=== PATIENT | female | born 1990 | race African-American/Black ===

== ENCOUNTER 2018-09-13 17:02 | Emergency (ER) | payer SELFPAY ==
[~2018-09-13] VITALS: Ht 170.2 cm; Wt 122.7 kg
[2018-09-13 17:13] VITALS: Ht 170.2 cm; Wt 122.7 kg
[2018-09-13 18:04] LABS: BASOPHILS 0.2 % (0-2); EOSINOPHILS 0.9 % (0-7); HEMATOCRIT 36.3 % (36.0-48.0); HEMOGLOBIN 12.2 g/dL (12-16); LYMPHOCYTES 37.8 % (15-50); MCH 33.2 pg (26.0-34.0); MCHC 33.6 g/dL (31.0-37.0); MCV 98.6 fL (80.0-100.0); MEAN PLATELET VOLUME 9.1 fL (7.4-10.4); MONOCYTES 7.9 % (2-11); NEUTROPHILS 53.2 % (40-80); RBC 3.68 10x6/uL (4.00-5.40); WBC 5.7 10x3/uL (4.8-10.8)
[2018-09-13 18:13] LABS: PLATELET COUNT 345 10x3/uL (130-400)
[2018-09-13 18:18] LABS: ALBUMIN 3.5 g/dL (3.4-5.0); ALKALINE PHOSPHATASE 61 U/L (46-116); ALT (SGPT) 17 U/L (10-68); BILIRUBIN - TOTAL 0.36 mg/dL (0.2-1.3); CALC OSMOLALITY 278 mosm/kg (275-300); CALCIUM 8.6 mg/dL (8.5-10.1); CARBON DIOXIDE 26.4 mmol/L (21.0-32.0); CHLORIDE - SERUM 106 mmol/L (98-107); CREATININE - SERUM 0.9 mg/dL (0.6-1.3); GLUCOSE 77 mg/dL (74-106); POTASSIUM - SERUM 3.9 mmol/L (3.5-5.1); PROTEIN - SERUM 7.5 g/dL (6.4-8.2); SODIUM 141 mmol/L (136-145); UREA NITROGEN 11 mg/dL (7-18); eGFR NON AFRICAN AMERICAN 80 mL/min (90-120)
[2018-09-13 18:28] LABS: HCG - QUANTITATIVE (MATERNAL) 697 mIU/mL
[2018-09-13 20:05] LABS: APPEARANCE HAZY (CLEAR); BILIRUBIN NEGATIVE (NEGATIVE); COLOR YELLOW (YELLOW); GLUCOSE NEGATIVE (NEGATIVE); KETONE NEGATIVE (NEGATIVE); NITRITE POSITIVE (NEGATIVE); PROTEIN TRACE mg/dL (NEGATIVE); SPECIFIC GRAVITY 1.015 (1.005-1.020); UROBILINOGEN NORMAL (NORMAL)
[2018-09-13 20:07] LABS: BACTERIA MANY /hpf (NONE SEEN); EPITHELIAL CELLS OCC /hpf (0-5); RED CELLS - URINE 25-50 /hpf (0-5); WHITE CELLS - URINE 0-5 /hpf (0-5)
[2018-09-13] MEDS ORDERED: MACROBID100 MG PO (20:23)
[2018-09-13 20:44] VITALS: BP 144/81
== END 2018-09-13 20:44 | disposition home or self-care (01) ==
LOC: D.ER 17:02
PROVIDERS: Family Medicine
DX: O23.41 Unspecified infection of urinary tract in pregnancy, first trimester (principal); Z3A.01 Less than 8 weeks gestation of pregnancy

== ENCOUNTER 2020-11-09 16:01 | Emergency (ER) | payer MEDICAID ==
[~2020-11-09] VITALS: Ht 170.2 cm; Wt 116.8 kg
[~2020-11-09 16:01] MED LIST: MACROBID100 MG PO
[2020-11-09 16:09] VITALS: Ht 170.2 cm; Wt 116.8 kg
[2020-11-09 18:26] LABS: BASOPHILS 0 % (0-2); EOSINOPHILS 0.5 % (0-7); HEMOGLOBIN 10.3 g/dL (12-16); IMMATURE GRANULOCYTES 0.2 % (0-5); LYMPHOCYTE ABS# 1.88 10x3/uL (1.18-3.74); LYMPHOCYTES 29.5 % (15-50); MCH 32.1 pg (26.0-34.0); MCHC 33.2 g/dL (31.0-37.0); MCV 96.6 fL (80.0-100.0); MEAN PLATELET VOLUME 9.7 fL (7.4-10.4); MONOCYTES 8.9 % (2-11); NEUTROPHIL ABS# 3.89 10x3/uL (1.56-6.13); NEUTROPHILS 60.9 % (40-80); RBC 3.21 10x6/uL (4.00-5.40); RDW 12.5 % (11.5-14.5); WBC 6.4 10x3/uL (4.8-10.8)
[2020-11-09 18:27] LABS: PLATELET COUNT 251 10x3/uL (130-400)
[2020-11-09 18:34] LABS: CALC OSMOLALITY 267 mosm/kg (275-300); CALCIUM 8.8 mg/dL (8.5-10.1); CARBON DIOXIDE 25.2 mmol/L (21.0-32.0); CHLORIDE - SERUM 106 mmol/L (98-107); CREATININE - SERUM 0.5 mg/dL (0.6-1.3); GLUCOSE 79 mg/dL (74-106); POTASSIUM - SERUM 3.7 mmol/L (3.5-5.1); SODIUM 136 mmol/L (136-145); UREA NITROGEN 5 mg/dL (7-18); eGFR NON AFRICAN AMERICAN > 90 mL/min (90-120)
[2020-11-09 18:43] LABS: ALBUMIN 2.5 g/dL (3.4-5.0); ALKALINE PHOSPHATASE 118 U/L (30-120); ALT (SGPT) 12 U/L (10-68); LIPASE 60 U/L (73-393); MAGNESIUM - SERUM 1.9 mg/dL (1.8-2.4); PROTEIN - SERUM 6.4 g/dL (6.4-8.2); TROPONIN-I < 0.017 ng/mL (0.000-0.060)
[2020-11-09 19:27] LABS: BILIRUBIN NEGATIVE (NEGATIVE); KETONE MODERATE mg/dL (NEGATIVE); NITRITE NEGATIVE (NEGATIVE)
[2020-11-09 19:28] LABS: BACTERIA MANY HPF (NONE SEEN)
[2020-11-09] MEDS ORDERED: MACROBID100 MG PO (19:37)
[2020-11-09 19:39] VITALS: BP 105/65
== END 2020-11-09 19:39 | disposition home or self-care (01) ==
LOC: D.ER 16:01
PROVIDERS: Emergency Medicine
DX: O23.43 Unspecified infection of urinary tract in pregnancy, third trimester (principal); R06.09 Other forms of dyspnea; Z3A.34 34 weeks gestation of pregnancy

== ENCOUNTER 2020-11-23 14:06 | Inpatient (IN) | payer MEDICAID ==
[~2020-11-23] VITALS: Ht 172.7 cm; Wt 117.9 kg
[2020-12-13] VITALS (10 sets, daily range): BP systolic 107–126; BP diastolic 55–71; Ht 172.7 cm; Wt 117.9 kg
[2020-12-13] MEDS ORDERED: PRENAVITE1 TAB PO (09:52)
[2020-12-13 09:57] LABS: HEMATOCRIT 31.7 % (36.0-48.0); HEMOGLOBIN 10.5 g/dL (12-16); MCH 31.6 pg (26.0-34.0); MCHC 33.1 g/dL (31.0-37.0); MCV 95.5 fL (80.0-100.0); MEAN PLATELET VOLUME 11.2 fL (7.4-10.4); RBC 3.32 10x6/uL (4.00-5.40); RDW 12.7 % (11.5-14.5); WBC 5.5 10x3/uL (4.8-10.8)
[2020-12-13 11:28] LABS: UDS - AMPHET NEGATIVE QUAL (NEGATIVE); UDS - BARB NEGATIVE QUAL (NEGATIVE); UDS - BENZO NEGATIVE QUAL (NEGATIVE); UDS - COCAINE NEGATIVE QUAL (NEGATIVE); UDS - OPIATE NEGATIVE QUAL (NEGATIVE); UDS - PCP NEGATIVE QUAL (NEGATIVE); UDS - THC NEGATIVE QUAL (NEGATIVE)
--- NOTE | 2020-12-13 14:10 | NUR ---
BABY DELIVERED CEPHALIC POSITION @ 1327. PLACENTA @ 1328. FAMILY FRIEND AT SIDE WITH PATIENT.
--- NOTE | 2020-12-13 14:31 | NUR ---
PT STATED 7.10 UPON FUNDAL MASSAGE. EDUCATED ON PAIN MEDICATION AND RISK OF OVERSEDATION. PT ON PHONE WITH FAMILY. AWAKE AND ALERT AFTER 30 TORADOL AND 1 OF DILAUDED. PT STATES PAIN IS STILL BAD. WILL CONTINUE TO WATCH SEDATION STATUS.
--- NOTE | 2020-12-13 14:41 | NUR ---
REC'D BACK TO ROOM 1273 FROM PACU. AA&O X4. VSS. FF, MIDLINE AND U2 WITH SMALL AMT RUBRA LOCHIA, 3 QUARTER SIZED CLOTS EXPRESSED WITH MASSAGE. PERICARE DONE. PAD CHANGED WITH 16 MLS QBL TO PAD. BREATH SOUNDS CLEAR AND EQUAL BILATERALLY. BOWEL SOUNDS PRESENT AND HYPOACTIVE X4. LOWER TRANSVERSE ABD INCISION WITH DRSG NOTED, CLEAN, DRY AND INTACT. RICHARDS DRAINING TO BEDSIDE DRAINAGE SYSTEM. POC DISCUSSED WITH PT, VERBALIZES UNDERSTANDING AND DENIES NEEDS. PAIN 4-5/10 PER PT "JUST A LITTLE SORE BUT THE MEDICINE SHE GAVE ME IS HELPING A LOT." BED IN LOW POSITION WITH SRUP X2. CALL LIGHT AND PHONE WITHIN REACH. WILL CONTINUE TO MONITOR.
--- NOTE | 2020-12-13 14:58 | NUR ---
TELECOMMUNICATIONS ENGINEER INITIATED, INSTRUCTED ON USE, VERBALIZES UNDERSTANDING.
--- NOTE | 2020-12-13 15:04 | NUR ---
VSS. FF, MIDLINE AND U2 WITH SMALL AMT RUBRA LOCHIA, NO CLOTS NOTED. PT SITTING IN HIGH FOWLERS POSITION CONVERSING ON PHONE AND WITH FAMILY. INCENTIVE SPIROMETER PROVIDED, INSTRUCTED ON USE WITH RETURN DEMONSTRATION DONE X10 WITH GOOD EFFORT. SCD'S TO BLE. PT ABLE TO MOVE BLE WITH EFFORT. COUGH AND DEEP BREATHING DONE WITH GOOD EFFORT. DENIES NEEDS.
--- NOTE | 2020-12-13 15:27 | NUR ---
VSS. FF, MIDLINE AND U2 WITH SCANT RUBRA LOCHIA, NO CLOTS NOTED. NBN TO BEDSIDE WITH INFANT FOR BONDING AND DISCUSSING POC.
--- NOTE | 2020-12-13 15:55 | NUR ---
VSS. FUNDUS FIRM, MIDLINE AND U2 WITH SCANT RUBRA LOCHIA. SPRITE PROVIDED. NEW ICE PACK PROVIDED. INFANT TO NBN PER PT REQUEST. DENIES ADDITIONAL NEEDS AND QUESTIONS. INCENTIVE SPIROMETER DONE X10 WITH GOOD EFFORT, REPOSITIONED WITH MIN ASSIST TO LEFT SIDE WITH PILLOW PLACED BEHIND BACK FOR COMFORT AND SUPPORT. SCD'S REMAIN ON BLE. BED IN LOW POSITION WITH SRUPX2. CALL LIGHT AND PHONE WITHIN REACH.
--- NOTE | 2020-12-13 16:57 | NUR ---
REPOSITIONED FROM L SIDE TO HIGH FOWLERS POSITION. TRAY PROVIDED. VSS. FF, MIDLINE AND U2 WITH SCANT RUBRA LOCHIA, NO CLOTS NOTED. DENIES PAIN AT THIS TIME, REPORTS THAT SHE JUST USED MEDICAL ADMINISTRATIVE ASSISTANT AND INCENTIVE SPIROMETER. ICE WATER PROVIDED. DENIES ADDITIONAL NEEDS. UPDATED ON STATUS.
--- NOTE | 2020-12-13 18:27 | NUR ---
VSS. FF MIDLINE AND U2 WITH SMALL AMT RUBRA LOCHIA, NO CLOTS NOTED. PERICARE DONE. PT ROLLED AND REPOSITIONED INDEPENDENTLY. I&O DONE. TO BEDSIDE, ID BANDS MATCHED AND INFANT PLACED IN PT ARMS. ICE WATER, DR. ORTEGA, AND ICE PACK PROVIDED. DENIES PAIN AND ADDITIONAL NEEDS. SCD'S ON BLE. INCENTIVE SPIROMETER DONE X10 WITH GOOD EFFORT, COUGH AND DEEP BREATHING DONE WITH GOOD EFFORT. PLACED BACK IN HIGH FOWLERS POSITION.
--- NOTE | 2020-12-13 19:18 | NUR ---
PT RESTING IN BED A,A,OX4. IN ARMS. VSS. SEE FULL ASSESSMENT PER FLOWSHEET. FF,MIDLINE U2. SMALL AMOUNT RUBRA LOCHIA NOTED ON PERIPADS. ICE PACK OVER LARGE BANDAGE AT LOWER TRANSVERSE ABDOMINAL INCISION SITE. BANDAGE CLEAN/DRI/INTACT. PIV INFUSING IN RT FOREARM PIT AT 125 ML/HR. C/D/I. RICHARDS DRAINING TO BEDSIDE DRAINAGE 15 MLS DARK TEA COLORED URINE. WATER PROVIDED. PT ENCOURAGED TO DRINK MORE WATER.
[2020-12-13 20:28] LABS: BASOPHILS 0.1 % (0-2); EOSINOPHILS 0 % (0-7); HEMATOCRIT 28.5 % (36.0-48.0); HEMOGLOBIN 9.7 g/dL (12-16); IMMATURE GRANULOCYTES 0.2 % (0-5); LYMPHOCYTE ABS# 1.45 10x3/uL (1.18-3.74); LYMPHOCYTES 16.9 % (15-50); MCH 32.6 pg (26.0-34.0); MCV 95.6 fL (80.0-100.0); MEAN PLATELET VOLUME 10.3 fL (7.4-10.4); MONOCYTES 7.7 % (2-11); NEUTROPHIL ABS# 6.46 10x3/uL (1.56-6.13); NEUTROPHILS 75.1 % (40-80); PLATELET COUNT 230 10x3/uL (130-400); RBC 2.98 10x6/uL (4.00-5.40); RDW 12.6 % (11.5-14.5)
[2020-12-13 20:29] LABS: WBC 8.6 10x3/uL (4.8-10.8)
--- NOTE | 2020-12-13 20:47 | NUR ---
PT CALLS OUT ON LIGHT REQUESTS ASSISTANCE OF GETTING OUT OF CRIB. INFANT HANDED TO MOM. PT DENIES OTHER NEEDS AT THIS TIME.
--- NOTE | 2020-12-13 21:45 | NUR ---
PT REQUESTS FOOD. DR DICKERSON NOTIFIED OF REQUEST. ORDERS RECEIVED TO KEEP PT ON CLEAR LIQUID DIET UNTIL MORNING. CLEAR DIET EXPLAINED TO PT, PT VERBALIZES UNDERSTANDING.
--- NOTE | 2020-12-13 21:57 | NUR ---
SEBASTIAN AND ICE WATER PROVIDED. PT DENIES OTHER NEES AT THIS TIME.
--- NOTE | 2020-12-13 23:17 | NUR ---
PT RESTING, DENIES NEEDS AT THIS TIME.
--- NOTE | 2020-12-14 00:10 | NUR ---
FF,MIDLINE,U2. SMALL AMOUNT RUBRA LOCHIA NOTED ON PERIPADS. PERICARE DONE AND PERIPADS, CHUCKS CHANGED. ICE PROVIDED. PT DENIES OTHER NEEDS AT THIS TIME.
--- NOTE | 2020-12-14 02:35 | NUR ---
PT CALLS OUT ON LIGHT REQUESTING ASSISTANCE WITH . INFANT HANDED TO MOTHER FROM CRIB. PT DENIES OTHER NEEDS AT THIS TIME.
--- NOTE | 2020-12-14 03:30 | NUR ---
PT REQUESTS FOR NURSERY TO CHANGE . PT EDUCATED ON SITTING UP AND BENEFITS OF MOVEMENT TO AID IN HEALING. PT ASSISTED TO SIT UP ON EDGE OF BED. INFANT CRIB MOVED TO OPPOSITE SIDE AND PT CHANGING 'S DIAPER ON HER OWN.
--- NOTE | 2020-12-14 04:00 | NUR ---
PT CALLS OUT ON LIGHT REQUESTING HELP WITH INFANT. ONESIE PUT ON , DIAPER THROWN OUT. PLACED IN CRIB.
[2020-12-14 07:03] LABS: BASOPHILS 0.2 % (0-2); EOSINOPHILS 0.3 % (0-7); HEMATOCRIT 29.1 % (36.0-48.0); HEMOGLOBIN 9.5 g/dL (12-16); IMMATURE GRANULOCYTES 0.2 % (0-5); LYMPHOCYTE ABS# 1.19 10x3/uL (1.18-3.74); LYMPHOCYTES 17.9 % (15-50); MCH 31.3 pg (26.0-34.0); MCHC 32.6 g/dL (31.0-37.0); MCV 95.7 fL (80.0-100.0); MEAN PLATELET VOLUME 10.8 fL (7.4-10.4); MONOCYTES 11.3 % (2-11); NEUTROPHIL ABS# 4.65 10x3/uL (1.56-6.13); NEUTROPHILS 70.1 % (40-80); PLATELET COUNT 241 10x3/uL (130-400); RBC 3.04 10x6/uL (4.00-5.40); RDW 12.6 % (11.5-14.5); WBC 6.6 10x3/uL (4.8-10.8)
[2020-12-14 07:15] VITALS: BP 117/70
[2020-12-14 07:15] LABS: RAPID PLASMA REAGIN Non Reactive (Non Reactive)
--- NOTE | 2020-12-14 09:05 | NUR ---
PT CALLS NURSE TO ROOM, STATES SHE NEEDS HER BABY HANDED TO HER, IT IS TIME TO FEED BABY. BABY IS SWADDLED IN BLANKET, IN NO ACUTE DISTRESS, INFANT PLACED IN MOTHER'S ARMS FOR AM FEEDING. PT STATES SHE WILL HOLD OFF ON THE PAIN MEDICATION FOR NOW, SHE WILL ADVANCE WHEN SHE FINISHED FEEDING INFANT. DENIES ALL OTHER NEEDS AT THIS TIME. SRUPX 2, CALL LIGHT AND PHONE WITHIN REACH.
--- NOTE | 2020-12-14 10:00 | NUR ---
TO ROOM, SOLE TRIMMER OFF, FUNDUS FIRM, U/1, SMALL RUBRA LOCHIA, NO CLOTS. PERIPADS CHANGED, PERICARE DONE WITH WARM WET WASHCLOTHS. ICE PACK OFF. RICHARDS CATH REMOVED WITH TOTAL OF 1100 MLS DARK YELLOW URINE. PT ENCOURAGED TO CALL NURSE BEFORE SHE GETS UP TO VOID, FOR ASSISTANCE, FROM RN. PT AGREES. PT CONTINUES TO USE INCENTIVE SPIROMETER, AND COUGHING AND DEEP BREATHING EXERCISES. POSITION CHANGE PER SELF, WITH GOOD STRENGTH AND CONTROL FROM PT. SRUP X2, CALL LIGHT AND PHONE WITHIN REACH.
--- NOTE | 2020-12-14 12:30 | NUR ---
Bhavin AKINS, POULTRY PICKING MACHINE TENDER TO ROOM TO ASSIST PT TO BR, PT SAT ON SIDE OF BED, DENIES SOB, DIZZINESS, CHEST PAIN, OR WEAKNESS. PT THEN ASSISTED TO BR, GAIT SLOW AND STEADY. PT THEN VOIDS IN [place] HAT 400 MLS, PERICARE PER SELF. PERIPADS/PANTIES ON. PT THEN BACK TO BED. PT CONTINUES TO USE I/S, AND COUGHNG AND DEEP BREATHING EXERCISES. SRUP X2, CALL LIGHT AND PHONE WITHIN REACH.
--- NOTE | 2020-12-14 13:00 | NUR ---
TO PT'S ROOM, PT IS SITTING UP IN THE BED, HOLDING . PT DENIES NEEDS AT THIS TIME. PT DENIES WANTING TO TAKE HYDROCODONE OF THIS TIME. PT HAS REGULAR DIET SERVED BY DIETARY ON BEDSIDE TABLE. PT DENIES ALL OTHER NEEDS AT THIS TIME. SRUP X2, CALL LIGHT AND PHONE WITHIN REACH.
--- NOTE | 2020-12-14 16:10 | NUR ---
PT REQUESTS PAIN MEDICATION. MOTRIN AND NORCO GIVEN.
--- NOTE | 2020-12-14 18:56 | NUR ---
REPORT RECEIVED FROM AM SHIFT TO ASSUME PT CARE.
[2020-12-14 20:01] VITALS: BP 119/65
--- NOTE | 2020-12-14 20:01 | NUR ---
PATIENT SITTING UP IN BED WATCHING TV. INFANT AT BEDSIDE IN OPEN CRIB. SHIFT ASSESSMENT COMPLETED, SEE FLOWSHEET.
--- NOTE | 2020-12-14 22:25 | NUR ---
PATIENT SITTING UP IN BED HOLDING INFANT. DENIES PAIN OR NEEDS. WILL CONTINUE TO MONITOR.
--- NOTE | 2020-12-14 23:43 | NUR ---
PAIN MEDICATION ADMINISTERED PER MD ORDERS AND PT REQUEST. ORANGE JUICE PROVIDED, NO FURTHER NEEDS IDENTIFIED. WILL CONTINUE TO MONITOR.
--- NOTE | 2020-12-15 02:30 | NUR ---
PT SITTING UP IN BED FEEDING . DENIES NEEDS, WILL CONTINUE TO MONITOR.
--- NOTE | 2020-12-15 04:12 | NUR ---
CALLED TO ROOM BY PATIENT, PT REQUESTING PAIN MEDICATION. PAIN MEDICATION ADMINISTERED PER PT REQUEST AND MD ORDERS.
--- NOTE | 2020-12-15 05:26 | NUR ---
PATIENT SITTING UP IN BED HOLDING INFANT. PACIFIER PROVIDED PER PT REQUEST. NO FURTHER NEEDS IDENTIFIED. WILL CONTINUE TO MONITOR.
--- NOTE | 2020-12-15 05:47 | NUR ---
IV SALINE FLUSHED WITHOUT DIFFICULTY. TO NURSERY PER PT REQUEST SO SHE COULD NAP.
[2020-12-15 07:25] VITALS: BP 126/69
--- NOTE | 2020-12-15 07:25 | NUR ---
THIS RN TO BEDSIDE FOR SHIFT ASSESSMENT. REC'D PT AA&O X 4 SITTING UP IN BED WATCHING TV. PAIN AND NEEDS ASSESSED. PT REPORTS PAIN 11/20. PAIN MEDICATION OFFERED. PT ACCEPTS. SEE EMAR. SEE FLOWSHEET FOR SHIFT ASSESSMENT DOCUMENATION. BREAKFAST SERVED. PT TO SITTING UP ON SIDE OF BED TO EAT. GRAPE JUICE ALSO SERVED. DISCHARGE PLANNING BEGUN. PT DENIES FURTHER NEEDS AT THIS TIME.
--- NOTE | 2020-12-15 07:55 | NUR ---
DR DENNIS ON UNIT AND TO PT'S ROOM AT THIS TIME.
--- NOTE | 2020-12-15 08:30 | NUR ---
ORDER REC'D PT MAY DISCHARGE HOME WITH BABY.
--- NOTE | 2020-12-15 08:45 | NUR ---
ROUNDS MADE. PT BACK TO SITTING UP IN BED. PAIN REASSESSED. PT REPORTS PAIN 08/22. ATE APPROX 25% OF REG BREAKFAST TRAY. DECLINES OFFERS TO BRING HER ANYTHING ELSE TO EAT AT THIS TIME. DECLINES ALL OFFERS TO BRING HER ANYTHING ELSE AT THIS TIME. BABY IN OPEN CRIB AT BEDSIDE. BED LOW SIDE RAILS UP X 2. CALL LIGHT AT PT'S SIDE.
--- NOTE | 2020-12-15 09:56 | NUR ---
ROUNDS MADE. PT SITTING UP IN BED WATCHING TV. PAIN AND NEEDS ASSESSED. PT DENIES NEEDS. CONTINUES TO REPORT PAIN 08/22. NO INTERVENTIONS REQUESTED AT THIS TIME.
--- NOTE | 2020-12-15 11:00 | NUR ---
ROUNDS MADE. UPON ENTERING THE ROOM, PT FOUND TO HAVE DOZED OFF WITH BABY LYING IN HER LAP. OPENS EYES SPONTANEOUSLY WITH SOFT VERBAL STIMULUS. DENIES PAIN OR NEEDS AT THIS TIME.
--- NOTE | 2020-12-15 12:00 | NUR ---
ROUNDS MADE. PT DENIES NEEDS. RATES PAIN 08/22.
--- NOTE | 2020-12-15 12:15 | NUR ---
DISCHARGE TEACHING PROVIDED TO INCLUDE PP CARE AFTER ,POST- WARNING SIGNS, PP DEPRESSION, PAIN MEDICATION AND MANAGEMENT. RX FOR NORCO AND MOTRIN PROVIDED. PT VERBALIZES UNDERSTANDING AND DENIES QUESTIONS AT THIS TIME. DISCHARGE PAPERS SIGNED AND COPY PROVIDED TO PT.
--- NOTE | 2020-12-15 12:30 | NUR ---
PT DISCHARGED HOME W/BABY AT THIS TIME. TRANSPORTED VIA W/C OFF THE UNIT PER Leslie RICHARDS RN TO AWAITING CAR TO BE DRIVEN HOME BY FAMILY FRIEND.
== END 2020-12-15 12:30 | disposition home or self-care (01) | DRG 788 ==
LOC: D.LD 12-13 09:08 → D.SDCHOLD 12-13 12:00 → D.LD 12-15 12:30
PROVIDERS: ADMIT Obstetrics & Gynecology; ATTEND Obstetrics & Gynecology
PROC: 10D00Z1 Extraction of Products of Conception, Low, Open Approach (ICD-10-PCS; principal; 2020-12-13 12:00)
DX: O34.219 Maternal care for unspecified type scar from previous cesarean delivery (principal); Z3A.39 39 weeks gestation of pregnancy; Z37.0 Single live birth

== ENCOUNTER 2020-12-05 18:28 | Outpatient (CLI) | payer MEDICAID ==
[2020-12-05 20:59] LABS: BILIRUBIN NEGATIVE (NEGATIVE); KETONE NEGATIVE (NEGATIVE); NITRITE NEGATIVE (NEGATIVE); UROBILINOGEN 8 mg/dL (< 2)
[2020-12-05 22:40] VITALS: BMI 40.3
== END 2020-12-05 21:55 ==
LOC: D.LDO 18:28
PROVIDERS: ATTEND Obstetrics & Gynecology
DX: O26.899 Other specified pregnancy related conditions, unspecified trimester (principal)